=== PATIENT | female | born 1965 | race Caucasian/White ===

== ENCOUNTER → 2018-04-30 | Outpatient (CLI) | payer OTHER ==
[2018-04-30 17:04] LABS: BASO % 0.5 %; BASO ABS # 0.04 K/uL (0-0.2); EOS % 2.7 %; EOS ABS # 0.23 K/uL (0-0.5); HEMOGLOBIN 11.9 g/dL (12.0-16.0); IG# 0.02 K/uL (0.00-0.02); LYMPH % 27.6 %; LYMPH ABS # 2.35 K/uL (1.2-3.4); MEAN CELL VOLUME 90.9 fL (80-100); MEAN CORPUSCULAR HEMOGLOBIN 30.9 pg (25-34); MONO % 4.1 %; MONO ABS # 0.35 K/uL (0.11-0.59); NEUT % 64.9 %; NEUT ABS # 5.52 K/uL (1.4-6.5); PLATELET COUNT 175 K/uL (130-400); RED CELL DISTRIBUTION WIDTH CV 12.6 % (11.5-14.5); RED CELL DISTRIBUTION WIDTH SD 41.5 fL (36.4-46.3); WHITE BLOOD COUNT 8.51 K/uL (4.8-10.8)
[2018-05-03 22:17] LABS: ANA SCREEN TC 249X NEGATIVE (NEGATIVE)
== END | disposition home or self-care (01) ==
LOC: C.LABBC 13:19
PROVIDERS: ATTEND Physician Assistant
DX: M25.462 Effusion, left knee (principal)